=== PATIENT | male | born 1960 | race Caucasian/White ===

== ENCOUNTER → 2024-07-15 07:41 | Outpatient (REF) | payer BC, SELFPAY | LOC: RAD 07:41 | PROVIDERS: ATTENDING PHYSICIAN Surgery Vascular Surgery; FAMILY PHYSICIAN Family Medicine | DX: I77.9 Disorder of arteries and arterioles, unspecified (principal); I74.5 Embolism and thrombosis of iliac artery | CPT/HCPCS: 93922; 93925; 93978 ==

== ENCOUNTER → 2024-10-30 08:27 | Outpatient (REF) | payer BC, SELFPAY | LOC: HWRCS 08:27 | PROVIDERS: ATTENDING PHYSICIAN Internal Medicine Cardiovascular Disease; FAMILY PHYSICIAN Family Medicine | DX: R06.09 Other forms of dyspnea (principal); I25.10 Atherosclerotic heart disease of native coronary artery without angina pectoris | CPT/HCPCS: 78452; 93017; A9500 ==

== ENCOUNTER → 2024-10-31 08:09 | Outpatient (REF) | payer BC, SELFPAY | LOC: RCS 08:09 | PROVIDERS: ATTENDING PHYSICIAN Internal Medicine Cardiovascular Disease; FAMILY PHYSICIAN Family Medicine | DX: R06.09 Other forms of dyspnea (principal) | CPT/HCPCS: 93306 ==